=== PATIENT | female | born 2005 | race Caucasian/White ===

== ENCOUNTER 2023-06-04 09:35 | Emergency (ER) | payer SELFPAY ==
[2023-06-04 10:48] LABS: APPEARANCE,URINE SLT CLOUDY; BILIRUBIN,URINE NEGATIVE (NEGATIVE); COLOR,URINE YELLOW; GLUCOSE,URINE NEGATIVE (NEGATIVE); KETONES,URINE NEGATIVE (NEGATIVE); LEUKOCYTE ESTERASE,URINE NEGATIVE (NEGATIVE); NITRITE,URINE NEGATIVE (NEGATIVE); OCCULT BLOOD,URINE TRACE-INTACT (NEGATIVE); PROTEIN,URINE NEGATIVE (NEGATIVE); UROBILINOGEN,URINE 0.2 EU/dL (<2.0)
[2023-06-04 10:48] LABS: BASOPHILS ABSOLUTE AUTO 0.02 K/uL (0.00-0.30); BASOPHILS PERCENT AUTO 0.4 % (0.0-1.0); EOSINOPHILS ABSOLUTE AUTO 0.06 K/uL (0.00-0.70); EOSINOPHILS PERCENT AUTO 1.1 % (0.0-5.0); HEMATOCRIT 38.3 % (37.0-47.0); HEMOGLOBIN 13.4 g/dL (12.0-16.0); IMMATURE GRAN ABSOLUTE AUTO 0.01 K/uL (0.00-0.05); IMMATURE GRAN PERCENT AUTO 0.2 % (0.0-0.4); LYMPHOCYTES ABSOLUTE AUTO 1.81 K/uL (2.00-8.80); LYMPHOCYTES PERCENT AUTO 33.3 % (50.0-65.0); MEAN CORPUSCULAR HEMOGLOBIN 31.9 pg (28.0-32.0); MEAN CORPUSCULAR VOLUME 91.2 fL (83.0-99.0); MONOCYTES ABSOLUTE AUTO 0.41 K/uL (0.10-1.40); MONOCYTES PERCENT AUTO 7.6 % (2.0-10.0); NEUTROPHILS ABSOLUTE AUTO 3.12 K/uL (1.50-8.50); NEUTROPHILS PERCENT AUTO 57.4 % (35.0-45.0); PLATELET COUNT,PLT 190 K/uL (150-400); WHITE BLOOD CELL COUNT,WBC 5.43 K/uL (4.5-13.5)
[2023-06-04 10:56] LABS: BACTERIA,URINE 1+ (NEGATIVE); EPITHELIAL CELLS,URINE FEW (NONE-FEW); RBC,URINE 0-1 (0-2/HPF); WBC,URINE 0-1 (0-5/HPF)
[2023-06-04 10:59] LABS: MUCUS,URINE LIGHT (NONE-MOD)
[2023-06-04 11:49] LABS: A/G RATIO 0.9 (0.9-1.6); ALBUMIN 3.8 g/dL (3.4-5.0); BILIRUBIN TOTAL 0.2 mg/dL (0.2-1.0); CALCIUM 8.8 mg/dL (8.5-10.1); CARBON DIOXIDE,CO2 23.1 mmol/L (21.0-32.0); CREATININE 0.6 mg/dL (0.6-1.0); EST CRCL DRUG DOSING (CG) 119.28 mL/min; POTASSIUM,K 3.8 mmol/L (3.5-5.1); PROTEIN TOTAL,TP 8.2 g/dL (6.4-8.2)
== END 2023-06-04 13:34 | disposition home or self-care (01) ==
LOC: MW.ED 09:35
DX: O20.0 Threatened abortion (principal); O23.90 Unspecified genitourinary tract infection in pregnancy, unspecified trimester; Z3A.01 Less than 8 weeks gestation of pregnancy; R82.71 Bacteriuria; E03.9 Hypothyroidism, unspecified; Z86.16 Personal history of COVID-19
CPT/HCPCS: 36415; 76817; 76817-26; 80053; 81001; 81025; 84702; 85025; 86900; 86901; 99283; 99284

== ENCOUNTER 2024-01-27 02:53 | Inpatient (IN) | payer OTHER ==
[2024-01-27] MEDS ORDERED: Carboprost Tromethamine 250 MCG/1 mL Vial IM PRN (03:57)
[2024-01-27] MEDS ORDERED: Sodium Chloride 0.9% 10 ML Syringe FLUSH PRN (03:57)
[2024-01-27] MEDS ORDERED: Lidocaine 1% 50 ML MDV INJECT PRN (03:57)
[2024-01-27] MEDS ORDERED: Sodium Chloride 0.9% 2.5 ML Syringe FLUSH PRN (03:57)
[2024-01-27] MEDS ORDERED: Sodium Chloride 0.9% 20 ML SDV IV PRN (03:57)
[2024-01-27] MEDS ORDERED: Water For Irrigation,Sterile 1,000 ML Container IRR PRN (03:57)
[2024-01-27 05:43] LABS: HEMATOCRIT 33.6 % (37.0-47.0); HEMOGLOBIN 11.7 g/dL (12.0-16.0); MEAN CORPUSCULAR HEMOGLOBIN 31.7 pg (28.0-32.0); MEAN CORPUSCULAR HGB CONC 34.8 g/dL (32.0-36.0); MEAN CORPUSCULAR VOLUME 91.1 fL (83.0-99.0); MEAN PLATELET VOLUME 11.2 fL (9.4-12.3); PLATELET COUNT,PLT 145 K/uL (150-400); RED BLOOD CELL COUNT 3.69 M/uL (4.10-5.30)
[2024-01-27 06:10] LABS: A/G RATIO 0.7 (0.9-1.6); ALBUMIN 2.8 g/dL (3.4-5.0); BILIRUBIN TOTAL 0.2 mg/dL (0.2-1.0); CREATININE 0.5 mg/dL (0.6-1.0); EST CRCL DRUG DOSING (CG) 148.47 mL/min; POTASSIUM,K 3.9 mmol/L (3.5-5.1); PROTEIN TOTAL,TP 7.1 g/dL (6.4-8.2)
[2024-01-27] MEDS: Oxytocin/0.9 % Sodium Chloride 30 UNIT/500 ML BAG IV SCH ×2 (08:45→18:17)
[2024-01-27] MEDS: Lactated Ringers 1,000 ML IV SCH (08:45)
[2024-01-27 08:47] LABS: CREATININE,URINE RAND 139.1 mg/dL; PROTEIN CREATININE RATIO,URINE 0.1; PROTEIN,URINE RANDOM 20.5 mg/dL (<11.9)
[2024-01-27] MEDS: Levothyroxine 75 MCG Tab PO SCH (08:49)
[2024-01-27] MEDS: Butorphanol 2 MG/ML SDV IVPUSH PRN (09:19)
[2024-01-27] MEDS: Ondansetron 4 MG/2 ML SDV IVPUSH PRN (10:07)
[2024-01-27] MEDS ORDERED: Bupivacaine 0.5% 10 ML SDV ONE (10:11)
[2024-01-27] MEDS ORDERED: Phenylephrine HCl In 0.9% NaCl 1 MG/10 ML Syringe ONE (10:11)
[2024-01-27] MEDS ORDERED: Ropivacaine HCl/PF 200 ML ONE (10:11)
[2024-01-27] MEDS: Ropivacaine HCl/PF 400 MG in Premix Bag 1 BAG EPIDUR SCH (10:32)
[2024-01-27] MEDS ORDERED: ePHEDrine 50 MG/ML SDV IM PRN (10:36)
[2024-01-27] MEDS ORDERED: Phenylephrine HCl In 0.9% NaCl 1 MG/10 ML Syringe IVPUSH PRN (10:36)
[2024-01-27] MEDS ORDERED: Bupivacaine 0.5% 10 ML SDV INJECT ONE (10:36)
[2024-01-27] MEDS ORDERED: ePHEDrine 50 MG/ML SDV IVPUSH PRN (10:36)
[2024-01-27] MEDS ORDERED: dexmedeTOMIDine HCl 200 MCG/2 ML SDV EPIDUR SCH (10:45)
[2024-01-27] MEDS: Oxytocin 10 Units/1 ML SDV IM STA (18:00)
[2024-01-27] MEDS: Tranexamic Acid 1,000 MG in Sodium Chloride 0.9% 100 ML IV ONE (18:00)
[2024-01-27] MEDS: Methylergonovine 0.2 MG/1 ML Amp IM PRN (18:07)
[2024-01-27] MEDS: Misoprostol 200 MCG Tab PO PRN (18:14)
[2024-01-27] MEDS: ceFAZolin 2 GM Vial ONE (18:31)
[2024-01-27] MEDS ORDERED: Oxytocin/0.9 % Sodium Chloride 30 UNIT/500 ML BAG ONE (18:32)
[2024-01-27] MEDS: Promethazine 25 MG/ML SDV IM ONE (18:50)
[2024-01-27 19:01] LABS: HEMATOCRIT 33.1 % (37.0-47.0); HEMOGLOBIN 11.1 g/dL (12.0-16.0); MEAN CORPUSCULAR HEMOGLOBIN 31.9 pg (28.0-32.0); MEAN CORPUSCULAR HGB CONC 33.5 g/dL (32.0-36.0); MEAN CORPUSCULAR VOLUME 95.1 fL (83.0-99.0); PLATELET COUNT,PLT 174 K/uL (150-400); RED BLOOD CELL COUNT 3.48 M/uL (4.10-5.30); WHITE BLOOD CELL COUNT,WBC 20.11 K/uL (3.9-11.3)
[2024-01-27 19:19] LABS: INR 0.99 (0.86-1.11); PTT,PARTIAL THROMBOPLSTIN TIME 28.2 SEC (23.9-30.7)
[2024-01-27 19:30] LABS: A/G RATIO 0.6 (0.9-1.6); ALBUMIN 2.5 g/dL (3.4-5.0); BILIRUBIN TOTAL 0.2 mg/dL (0.2-1.0); CALCIUM 8.9 mg/dL (8.5-10.1); CARBON DIOXIDE,CO2 20.2 mmol/L (21.0-32.0); CREATININE 0.9 mg/dL (0.6-1.0); EST CRCL DRUG DOSING (CG) 82.48 mL/min; POTASSIUM,K 3.8 mmol/L (3.5-5.1); PROTEIN TOTAL,TP 6.9 g/dL (6.4-8.2)
[2024-01-27] MEDS ORDERED: oxyCODONE 5 MG Tab PO PRN (19:52)
[2024-01-27] MEDS ORDERED: Lanolin 100% Cream 7 GM Tube TOP PRN (19:52)
[2024-01-27] MEDS: diphenhydrAMINE 50 MG/ML SDV IVPUSH ONE (20:04)
[2024-01-28] MEDS: Acetaminophen 500 MG Tab PO PRN (00:50)
[2024-01-28] MEDS: Witch Hazel Medicated Pads 40/Jar TOP PRN (01:16)
[2024-01-28] MEDS: Benzocaine/Menthol 20%-0.5% Spray 78 GM Cannister TOP PRN (01:16)
[2024-01-28] MEDS: ceFAZolin 2 GM in Sodium Chloride 0.9% 50 ML IV SCH (02:34)
[2024-01-28] MEDS: Docusate Sodium 100 MG Cap PO PRN (04:16)
[2024-01-28 06:56] LABS: HEMATOCRIT 27.8 % (37.0-47.0); HEMOGLOBIN 9.6 g/dL (12.0-16.0); MEAN CORPUSCULAR HGB CONC 34.5 g/dL (32.0-36.0); MEAN CORPUSCULAR VOLUME 89.7 fL (83.0-99.0); MEAN PLATELET VOLUME 11.5 fL (9.4-12.3); PLATELET COUNT,PLT 115 K/uL (150-400); WHITE BLOOD CELL COUNT,WBC 11.36 K/uL (3.9-11.3)
[2024-01-28] MEDS: Ferrous Sulfate 325 MG Tab PO SCH (16:10)
[2024-01-29] MEDS: Ibuprofen 800 MG Tab PO PRN (04:49)
[2024-01-29] MEDS ORDERED: Prenatal Multivitamin with Calcium/Folic Acid/Iron Tab PO SCH (08:00)
== END 2024-01-29 17:41 | disposition home or self-care (01) | DRG 768 ==
LOC: MW.OBCHECK 02:53 → MW.OB 02:55 → MW.OBCHECK 03:57 → OBSVTOIN 19:53 → MW.OB 01-28 00:19
PROVIDERS: ADMIT Obstetrics & Gynecology; ATTEND Obstetrics & Gynecology
PROC: 10E0XZZ Delivery of Products of Conception, External Approach (ICD-10-PCS; principal; 2024-01-27)
PROC: 0W3R7ZZ Control Bleeding in Genitourinary Tract, Via Natural or Artificial Opening (ICD-10-PCS; 2024-01-27)
PROC: 0KQM0ZZ Repair Perineum Muscle, Open Approach (ICD-10-PCS; 2024-01-27)
PROC: 0UQGXZZ Repair Vagina, External Approach (ICD-10-PCS; 2024-01-27)
PROC: 30233N1 Transfusion of Nonautologous Red Blood Cells into Peripheral Vein, Percutaneous Approach (ICD-10-PCS; 2024-01-27)
PROC: 3E0R3BZ Introduction of Anesthetic Agent into Spinal Canal, Percutaneous Approach (ICD-10-PCS; 2024-01-27)
PROC: 00HU33Z Insertion of Infusion Device into Spinal Canal, Percutaneous Approach (ICD-10-PCS; 2024-01-27)
DX: O99.284 Endocrine, nutritional and metabolic diseases complicating childbirth (principal); Z37.0 Single live birth; D62 Acute posthemorrhagic anemia; O72.1 Other immediate postpartum hemorrhage; Z3A.38 38 weeks gestation of pregnancy; O70.1 Second degree perineal laceration during delivery; O99.02 Anemia complicating childbirth; O13.4 Gestational [pregnancy-induced] hypertension without significant proteinuria, complicating childbirth
CPT/HCPCS: 01967; 36415; 36430; 51701; 51702; 59025; 59409; 80053; 82570; 84156; 85027; 85384; 85610; 85730; 86592; 86850; 86900; 86901; 86920; A9270-GY; J0595; J0665; J0690; J1200; J2210; J2371; J2405; J2550; J2590; J2795; J3490; J7120; P9016

== ENCOUNTER 2024-03-01 07:38 | Emergency (ER) | payer OTHER ==
[2024-03-01] MEDS ORDERED: Sodium Chloride 0.9% 10 ML Syringe FLUSH PRN (07:53)
[2024-03-01] MEDS ORDERED: Sodium Chloride 0.9% 2.5 ML Syringe FLUSH PRN (07:53)
[2024-03-01] MEDS ORDERED: Naloxone 0.4 MG/ML SDV IVPUSH PRN ×2 (07:54→11:26)
[2024-03-01] MEDS: Morphine 2 MG/ML SYRINGE IVPUSH ONE (08:16)
[2024-03-01] MEDS: Ondansetron 4 MG/2 ML SDV IVPUSH ONE (08:17)
[2024-03-01 09:09] LABS: BASOPHILS ABSOLUTE AUTO 0.04 K/uL (0.00-0.20); BASOPHILS PERCENT AUTO 0.4 % (0.0-1.0); EOSINOPHILS ABSOLUTE AUTO 0.09 K/uL (0.00-0.45); EOSINOPHILS PERCENT AUTO 0.9 % (0.0-6.0); HEMATOCRIT 37.8 % (37.0-47.0); HEMOGLOBIN 12.6 g/dL (12.0-16.0); IMMATURE GRAN ABSOLUTE AUTO 0.03 K/uL (0.00-0.05); IMMATURE GRAN PERCENT AUTO 0.3 % (0.0-0.4); LYMPHOCYTES ABSOLUTE AUTO 1.47 K/uL (1.00-4.80); LYMPHOCYTES PERCENT AUTO 14.7 % (24.0-44.0); MEAN CORPUSCULAR HEMOGLOBIN 30.8 pg (28.0-32.0); MEAN CORPUSCULAR HGB CONC 33.3 g/dL (32.0-36.0); MEAN CORPUSCULAR VOLUME 92.4 fL (83.0-99.0); MEAN PLATELET VOLUME 10.6 fL (9.4-12.3); MONOCYTES ABSOLUTE AUTO 0.42 K/uL (0.00-0.80); MONOCYTES PERCENT AUTO 4.2 % (0.0-8.0); NEUTROPHILS ABSOLUTE AUTO 7.92 K/uL (1.80-7.70); NEUTROPHILS PERCENT AUTO 79.5 % (41.0-71.0); PLATELET COUNT,PLT 170 K/uL (150-400); RED BLOOD CELL COUNT 4.09 M/uL (4.10-5.30); WHITE BLOOD CELL COUNT,WBC 9.97 K/uL (3.9-11.3)
[2024-03-01 09:18] LABS: A/G RATIO 0.9 (0.9-1.6); ALBUMIN 3.8 g/dL (3.4-5.0); BILIRUBIN TOTAL 0.4 mg/dL (0.2-1.0); CALCIUM 9.4 mg/dL (8.5-10.1); CARBON DIOXIDE,CO2 29.3 mmol/L (21.0-32.0); CREATININE 0.7 mg/dL (0.6-1.0); EST CRCL DRUG DOSING (CG) 106.05 mL/min; POTASSIUM,K 3.7 mmol/L (3.5-5.1); PROTEIN TOTAL,TP 7.8 g/dL (6.4-8.2)
[2024-03-01] MEDS: Famotidine 20 MG Tab PO ONE (09:56)
[2024-03-01] MEDS: Alum Hydrox/Mag Hydrox/Simeth 15 ML, Lidocaine 2% 5 ML PO ONE (09:57)
[2024-03-01] MEDS: Morphine 4 MG/ML Syringe IVPUSH ONE (11:41)
[2024-03-01] MEDS: Iopamidol 755 MG/ML 500 ML Multipack Bottle IVPUSH STA (12:28)
== END 2024-03-01 13:39 | disposition home or self-care (01) ==
LOC: MW.ED 07:38
DX: R10.13 Epigastric pain (principal); R10.11 Right upper quadrant pain; Z79.899 Other long term (current) drug therapy; Z75.8 Other problems related to medical facilities and other health care
CPT/HCPCS: 36415; 74177; 76705; 80053; 83690; 85025; 96374; 96375; 96376; 99284; A9270; J2270; J2405; Q9967